=== PATIENT | female | born 1995 | race Caucasian/White ===

== ENCOUNTER 2019-04-04 07:52 | Outpatient (CLI) | payer OTHER ==
--- NOTE | 2019-04-04 08:31 | ULT ---
LIMITED RIGHT BREAST ULTRASOUND: DATE: 04/04/2019. PROVIDED CLINICAL HISTORY: Right breast lump. FINDINGS: Limited sonographic interrogation of the right breast was performed at the 10 o'clock location in the region of palpable concern. There is a smoothly marginated, well circumscribed hypoechoic mass riaz uring about 5.5 x 3.9 x 3.2 cm in the region of palpable concern. There are no shadowing or associat ed calcifications evident. IMPRESSION: 5.5 cm right breast mass in the region of palpable concern, the sonographic appearance of which is co mpatible with a fibroadenoma. Six-month followup right breast ultrasound versus surgical consultatio n regarding the possibility of excision recommended. POS: OFF
== END 2019-04-04 07:53 | disposition home or self-care (01) ==
LOC: BICULT 07:52
PROVIDERS: ATTEND Student in an Organized Health Care Education/Training Program
DX: N63.11 Unspecified lump in the right breast, upper outer quadrant (principal)

== ENCOUNTER 2019-05-25 06:14 | Outpatient (CLI) | payer OTHER ==
[2019-05-25 13:40] LABS: BHCG - Serum Negative (NEGATIVE); Pregs Control Background? CLEAR/WHITE (CLR/WHITE); Pregs Control Bar Appear? YES (CONTROL BAR)
== END 2019-05-25 06:15 | disposition home or self-care (01) ==
LOC: LABBT 06:14
PROVIDERS: ATTEND Surgery
DX: Z01.812 Encounter for preprocedural laboratory examination (principal); N63.10 Unspecified lump in the right breast, unspecified quadrant
CPT/HCPCS: 84703

== ENCOUNTER 2019-06-01 10:28 | Day surgery (SDC) | payer OTHER ==
[2019-05-25 12:20] VITALS: BMI 28.3
[2019-06-01] MEDS ORDERED: Bupivacaine PF 0.5% 30 ML VIAL ONE (10:47)
[2019-06-01] MEDS ORDERED: Lidocaine 1% w/Epinephrine 1:100K 20 ML VIAL ONE (10:47)
[2019-06-01] MEDS ORDERED: Fentanyl 100 MCG/2 ML VIAL ONE (11:06)
[2019-06-01] MEDS ORDERED: Midazolam HCl 2 mg/2 ml Vial ONE (11:16)
[2019-06-01] MEDS ORDERED: Scopolamine 1.5 mg/72 hour Patch ONE (11:17)
[2019-06-01] MEDS ORDERED: ePHEDrine/0.9% NaCl/PF SYRINGE 50 mg/10 ml ONE (13:37)
[2019-06-01] MEDS ORDERED: Ketorolac Tromethamine 30 MG/ML VIAL ONE (13:37)
[2019-06-01] MEDS ORDERED: Glycopyrrolate 0.2 MG/ML 5 ML SYRINGE ONE (13:37)
[2019-06-01] MEDS ORDERED: Dexamethasone 20 MG/5 ML VIAL ONE (13:37)
[2019-06-01] MEDS ORDERED: PROPOFOL 200 MG/20 ML VIAL ONE (13:37)
[2019-06-01] MEDS ORDERED: Lidocaine 1% PF 5 ML VIAL ONE (13:37)
[2019-06-01] MEDS ORDERED: Ondansetron PF 4 MG/2 ML Vial ONE (13:37)
[2019-06-01] MEDS ORDERED: HYDROcodone/Acetaminophen 5/325 mg Tablet ONE (14:19)
--- NOTE | 2019-06-01 16:21 | OP ---
DATE OF PROCEDURE: 06/01/2019 PREOPERATIVE DIAGNOSIS: Right breast mass. POSTOPERATIVE DIAGNOSIS: Right breast mass. PROCEDURE PERFORMED: Right breast mass excision. ANESTHESIA: General. ESTIMATED BLOOD LOSS: Minimal. COMPLICATIONS: None. SPECIMENS: Right breast mass. DESCRIPTION OF PROCEDURE: The patient was taken to the operating room and laid supine on the operating room table. After general anesthetic was obtained, the right breast was prepped and draped in a sterile fashion. An incision was made on top of the palpable abnormality. Flaps were raised superomedially and inferolaterally around this obvious palpable fibroadenoma. It was excised and sent to [facility] for final diagnosis. The wound was irrigated. Local anesthetic was infiltrated and the wound was closed using 3-0 Vicryl, 4-0 Monocryl, and Dermabond. The patient was sent to Recovery in stable condition. All instrument counts, needle counts, and lap counts were correct. Job ID: [id number]
== END 2019-06-01 13:20 | disposition home or self-care (01) ==
LOC: SDC 10:28
PROVIDERS: ATTEND Surgery
PROC: 0HBT0ZZ Excision of Right Breast, Open Approach (ICD-10-PCS; principal; 2019-06-01)
DX: D24.1 Benign neoplasm of right breast (principal); N60.81 Other benign mammary dysplasias of right breast; Z79.899 Other long term (current) drug therapy
CPT/HCPCS: 88305; J0690; J1100; J1885; J2001; J2250; J2405; J2704; J3010; S0020

== ENCOUNTER 2022-12-09 10:37 | Outpatient (CLI) | payer OTHER | END 2022-12-09 10:38 | disposition home or self-care (01) | LOC: BICULT 10:37 | PROVIDERS: ATTEND Student in an Organized Health Care Education/Training Program | DX: N63.11 Unspecified lump in the right breast, upper outer quadrant (principal) ==